=== PATIENT | female | born 1990 | race Caucasian/White ===

== ENCOUNTER 2017-03-04 18:26 | Emergency (ER) | payer OTHER ==
[~2017-03-04] VITALS: Ht 162.6 cm; Wt 52.5 kg
[~2017-03-04 18:26] MED LIST: BUPR-79 PO; CARV12.52 PO; DIGO0.122 PO; SACU1TAB7 PO; SPIR25TA PO
[2017-03-04 18:31] VITALS: BP 121/75; PULSE 97; TEMP 36.8; O2SAT 95; Ht 162.6 cm; Wt 52.5 kg
[2017-03-04] MEDS ORDERED: XYLOCAINE 1%/SOD BICARB 20 ML VIAL INFIL ONE (19:00)
--- NOTE | 2017-03-04 19:34 | EMERGENCY ROOM VISIT NOTE ---
History First contact with patient: 18:35 Chief Complaint: TOE PAIN, INJURY Stated Complaint: MIGHT HAVE GLASS IN LEFT TOE History of Present Illness The patient is a 26 year old female who presents to the Emergency Room with 2 complaints this evening. The patient reports that she stepped on a piece glass in her kitchen. The patient took glass bake where out of the oven and sat it on a burner that she did not know was on. When she left the kitchen and came back, the dish exploded. She then accidentally stepped on a piece glass on the floor. She denies any significant bleeding or pain. The patient also complains of nasal congestion and cough for the past 24 hours. She has not been running any fevers. She denies any known sick contacts. The patient reports a history of cardiomyopathy, and was told that the medication that she can take for upper respiratory infections is guaifenesin. The patient has not taken any Mucinex at this point. Review of Systems 10 system review was performed and was negative except for pertinent positives and negatives as indicated in history of present illness Past Medical/Surgical History Medical Problems: (1) CHF (congestive heart failure) (2) Heart disease (3) Peripartum cardiomyopathy Family History Diabetes mellitus Hypertension Social History Smoking Status: Never Smoker Alcohol Use: none Drug Use: none Marital Status: Housing Status: lives with family Occupation Status: unemployed Current/Historical Medications Scheduled Carvedilol (Coreg), 6.25 MG PO BID Digoxin (Lanoxin), 0.125 MG PO DAILY Sacubitril-Valsartan (Entresto 49-51 mg), 1 TAB PO BID Physical Exam Vital Signs Date Time Temp Pulse Resp B/P (MAP) Pulse Ox O2 Delivery O2 Flow Rate FiO2 03/04/17 18:31 36.8 97 16 121/75 95 Room Air Physical Exam CONSTITUTIONAL: Healthy and well nourished. Alert and oriented X 3 with positive affect. Patient does not appear in any acute distress, nor does she appear acutely or toxic. She does have a mild nonproductive cough. HEENT: Normocephalic, atraumatic. Pupils equal, round and reactive. TMs are mildly bulging bilaterally. Mild rhinorrhea is noted. No conjunctival injection. OROPHARYNX: Minimal posterior frontal erythema without tonsillar hypertrophy or exudates. NECK: Full active range of motion without discomfort. No JVD or carotid bruits. RESPIRATORY: Clear to auscultation bilaterally with no wheezing, crackles, rhonchi or stridor. CARDIOVASCULAR: Regular rate and rhythm with no murmurs, rubs or gallops. MUSCULOSKELETAL: Examination of the left great toe shows a 2 cm laceration on the plantar aspect of the toe. It appears to only be an epidermal laceration with a central puncture wound into the dermis. There is no active bleeding. Transilluminates does not show any obvious underlying foreign body. The patient does have tenderness to palpation over the region. Capillary refill is less than 2 seconds. INTEGUMENTARY: No rash or other significant dermatologic conditions noted. NEUROLOGIC: No focal neurologic deficits noted. Medical Decision & Procedures Procedure The patient elected wound exploration of the left great toe under digital block anesthesia. Using buffered 1% lidocaine without epinephrine, good digital block anesthesia was administered. The toe was in painted with iodine and allowed to dry. Using iris scissors, the wound was thoroughly explored shows a deep laceration to the underlying subcutaneous space. There was no obvious glass foreign body with probing. The wound was then pressure irrigated with normal saline, then approximated with 4-0 nylon simple interrupted sutures 2. A bacitracin bandage was applied. ED Course Patient history and physical exam were performed. Nurse's notes were reviewed. Vital signs were reviewed and normal. The patient is afebrile with a normal O2 saturation on room air. I explained to the patient that she likely has a viral upper respiratory infection that will not respond to antibiotics. Given her history of cardiac myopathy, I suggested using Mucinex only. She was instructed to refrain from any medications that contain pseudoephedrine, dextromethorphan or other stimulants. Wound exploration of the left great toe did not show any underlying foreign debris. Laceration repair was performed. She was instructed to keep the wound clean and covered with an antibiotic ointment and bandage until it heals. Removal in 14 days, or seek reevaluation sooner for any signs of wound infection. She is welcome to return to the emergency department for any significant worsening symptoms, otherwise follow- up with her PCP as needed for further management. The patient was happy with plan of care, and voiced understanding of all discharge instructions. Medical Decision Medication Reconcilliation Current Medication List: was personally reviewed by me Blood Pressure Screening Patient's blood pressure: Normal blood pressure Impression Primary Impression: Viral upper respiratory infection Additional Impression: Laceration of left great toe Departure Information Referrals Chidi Johnson M.D. (PCP) Patient Instructions My [facility] Problem Qualifiers Additional Impression: Laceration of left great toe Encounter type: initial encounter Damage to nail status: without damage Foreign body presence: without foreign body Qualified Codes: S91.112A - Laceration without foreign body of left great toe without damage to nail, initial encounter
== END 2017-03-04 19:49 | disposition home or self-care (01) ==
LOC: C.EDB 18:27 → C.EDD 19:49
DX: S91.112A Laceration without foreign body of left great toe without damage to nail, initial encounter (principal); J06.9 Acute upper respiratory infection, unspecified; W25.XXXA Contact with sharp glass, initial encounter; Y92.010 Kitchen of single-family (private) house as the place of occurrence of the external cause; Z83.3 Family history of diabetes mellitus; Z82.49 Family history of ischemic heart disease and other diseases of the circulatory system; Z79.899 Other long term (current) drug therapy

== ENCOUNTER → 2017-07-18 | Outpatient (CLI) | payer OTHER ==
[~2017-07-18] MED LIST changes: -BUPR-79 PO; -SPIR25TA PO
[2017-07-18 12:54] LABS: THYROID STIMULATING HORMONE 1.23 uIu/ml (0.300-4.500)
== END | disposition home or self-care (01) ==
LOC: C.LAB 10:27
PROVIDERS: ATTEND Internal Medicine Endocrinology, Diabetes & Metabolism
DX: E05.90 Thyrotoxicosis, unspecified without thyrotoxic crisis or storm (principal)